=== PATIENT | male | born 1995 | race Caucasian/White ===

== ENCOUNTER 2022-01-08 22:16 | Emergency (ER) | payer SELFPAY ==
[~2022-01-08 22:16] MED LIST: LIDOCAINE PATCH REMOVAL MC SCH
[2022-01-08 22:38] VITALS: BP 136/84; PULSE 77; RESP 20; TEMP 97.9; BMI 31.5
[2022-01-08] MEDS ORDERED: LIDOCAINE 5% TOPICAL PATCH TP ONE (23:30)
[2022-01-08] MEDS ORDERED: KETOROLAC TROMETHAMINE 30 MG/1 ML VIAL IM ONE (23:30)
[2022-01-08] MEDS ORDERED: LIDOCAINE 5% TOPICAL PATCH ONE (23:50)
[2022-01-08] MEDS ORDERED: KETOROLAC TROMETHAMINE 30 MG/1 ML VIAL ONE (23:50)
== END 2022-01-09 00:11 | disposition home or self-care (01) ==
LOC: JER 22:16
PROC: 3E0233Z Introduction of Anti-inflammatory into Muscle, Percutaneous Approach (ICD-10-PCS; principal; 2022-01-08)
DX: R07.82 Intercostal pain (principal)
CPT/HCPCS: 99284-25

== ENCOUNTER 2024-08-29 09:43 | Emergency (ER) | payer OTHER ==
[2024-08-29 10:24] VITALS: BP 122/69; PULSE 65; RESP 20; TEMP 98.3; BMI 31.6
[2024-08-29] MEDS: SULFAMETHOXAZOLE/TRIMETHOPRIM 800MG/160MG D.S. TABLET PO ONE (10:37)
[2024-08-29] MEDS ORDERED: CLINDAMYCIN HCL 150 MG CAPSULE (FP) ONE (10:39)
[2024-08-29] MEDS ORDERED: DIPHTH,PERTUSS(ACELL),TET 0.5 ML DISP.SYRIN IM ONE (10:39)
[2024-08-29] MEDS ORDERED: IBUPROFEN 600 MG TABLET (FP) PO ONE (10:39)
[2024-08-29] MEDS: DIPHTH,PERTUSS(ACELL),TET 0.5 ML DISP.SYRIN IM ONE (10:39)
[2024-08-29] MEDS: CLINDAMYCIN HCL 300 MG CAPSULE PO ONE (10:46)
[2024-08-29] MEDS: IBUPROFEN 600 MG TABLET (FP) PO ONE (10:46)
== END 2024-08-29 11:30 | disposition home or self-care (01) ==
LOC: JERFT 09:43
PROC: 0HQFXZZ Repair Right Hand Skin, External Approach (ICD-10-PCS; principal; 2024-08-29)
PROC: 3E0234Z Introduction of Serum, Toxoid and Vaccine into Muscle, Percutaneous Approach (ICD-10-PCS; 2024-08-29)
DX: S61.012A Laceration without foreign body of left thumb without damage to nail, initial encounter (principal); Z23 Encounter for immunization; W27.8XXA Contact with other nonpowered hand tool, initial encounter
CPT/HCPCS: 12001-25; 73140-TC-RT-FY; 90471; 90715; 99284-25

== ENCOUNTER 2025-03-05 00:52 | Observation (INO) | payer OTHER ==
[2025-03-05] MEDS ORDERED: ONDANSETRON 4 MG/2 ML VIAL ONE ×2 (01:43→04:13)
[2025-03-05] MEDS ORDERED: ACETAMINOPHEN INJECTION 100 ML ONE ×2 (01:43→13:01)
[2025-03-05] MEDS: ACETAMINOPHEN 1000 MG/100 ML BAG IVPB ONE ×2 (02:09→13:08)
[2025-03-05] MEDS: ONDANSETRON 4 MG/2 ML VIAL IVPUSH ONE ×2 (02:10→04:26)
[2025-03-05 02:21] LABS: ABSOLUTE IMMATURE GRANULOCYTES 0.03 x10^3/uL (0.0-0.031); BASOPHILS # 0.05 x10^3/uL (0.01-0.08); EOSINOPHIL % 2.6 % (0.8-7.0); EOSINOPHILS # 0.30 x10^3/uL (0.04-0.54); INR 0.97 (0.83-1.09); MCHC 33.3 g/dl (32.3-36.5); MEAN CELL VOLUME 84.2 fl (79.0-92.2); MEAN PLT VOLUME 11.0 fl (9.4-12.4); MONOCYTE # 0.54 x10^3/uL (0.30-0.82); MONOCYTE % 4.6 % (5.3-12.2); PROTHROMBIN TIME (PATIENT) 10.7 SEC (9.7-13.0); RDW 12.4 % (12.0-15.6)
[2025-03-05 02:24] LABS: ACTIVATED PTT 27.9 SECONDS (25.2-36.5)
[2025-03-05 03:16] LABS: GLUCOSE,RANDOM 119.0 mg/dL (74-106); TOT PROT 7.6 g/dl (6.4-8.2)
[2025-03-05 03:17] LABS: CO2 24.0 mmol/L (21-32)
[2025-03-05 03:19] LABS: ALK PHOS 89.0 U/L (40-150)
[2025-03-05] MEDS ORDERED: PIPERACILLIN/TAZOB 3.375 GM 3.375 GM/50 ML BAG IVPB ONE (03:19)
[2025-03-05] MEDS ORDERED: MORPHINE SULFATE 2 MG/ML SYRINGE ONE (03:19)
[2025-03-05 03:22] LABS: CREATININE 0.74 mg/dL (0.55-1.3); SGOT/AST 30.0 U/L (5-34); SGPT/ALT 43.0 U/L (0-55)
[2025-03-05] MEDS: morphine CARPU-JECT 2 MG/1 ML DISP.SYRIN IVPUSH ONE (03:27)
[2025-03-05] MEDS: PIPERACILLIN/TAZOB 3.375 GM 3.375 GM in DEXTROSE 5%-WATER - 50 ML IVPB ONE (03:27)
[2025-03-05 03:42] LABS: HCV DIAGNOSTIC IN-HOUSE W/RFLX NON-REACTIVE (NONREACTIVE); HIV INTERPRETATION NEGATIVE (NEGATIVE)
[2025-03-05] MEDS: morphine CARPU-JECT 4 MG/1 ML DISP.SYRIN IVPUSH ONE (04:27)
[2025-03-05] MEDS: LACTATED RINGERS SOLUTION 1,000 ML/1,000 ML INFUS.BAG IV SCH (06:00)
[2025-03-05] MEDS ORDERED: ONDANSETRON 4 MG/2 ML VIAL IVPUSH PRN ×3 (06:17→12:52)
[2025-03-05] MEDS ORDERED: MORPHINE SULFATE 2 MG/ML SYRINGE IVPUSH PRN (06:17)
[2025-03-05] MEDS: ACETAMINOPHEN 1000 MG/100 ML BAG IVPB PRN (06:50)
[2025-03-05 08:37] LABS: MCHC 33.5 g/dl (32.3-36.5); MEAN CELL VOLUME 84.2 fl (79.0-92.2); MEAN PLT VOLUME 10.9 fl (9.4-12.4); RDW 12.3 % (12.0-15.6)
[2025-03-05 09:26] LABS: GLUCOSE,RANDOM 141.0 mg/dL (74-106); TOT PROT 7.4 g/dl (6.4-8.2)
[2025-03-05 09:27] LABS: CO2 22.0 mmol/L (21-32)
[2025-03-05 09:29] LABS: ALK PHOS 81.0 U/L (40-150)
[2025-03-05] MEDS ORDERED: BUPIVACAINE HCL/PF 0.25% (2.5MG/ML) 10 ML VIAL ONE (09:30)
[2025-03-05 09:32] LABS: CREATININE 0.7 mg/dL (0.55-1.3); SGOT/AST 122.0 U/L (5-34); SGPT/ALT 114.0 U/L (0-55)
[2025-03-05] MEDS ORDERED: ROCURONIUM BROMIDE 50 MG/5 ML SYRINGE ONE ×2 (09:45→11:31)
[2025-03-05] MEDS ORDERED: MIDAZOLAM HCL 2 MG/2 ML SINGLE DOSE VIAL ONE (09:45)
[2025-03-05] MEDS ORDERED: PROPOFOL 20 ML ONE ×2 (09:45→11:02)
[2025-03-05] MEDS: PIPERACILLIN/TAZOBACTAM 3.375 GM VIAL IVPB ONE (10:00)
[2025-03-05] MEDS ORDERED: PROTAMINE SULFATE 50 MG/5 ML VIAL ONE (11:02)
[2025-03-05] MEDS: BUPIVACAINE HCL/PF 0.25% (2.5MG/ML) 10 ML VIAL IJ ONE ×2 (11:25)
[2025-03-05] MEDS ORDERED: NEOSTIGMINE METHYLSULFATE 0.5 MG/1 ML - 10 ML MDV ONE (11:56)
[2025-03-05] MEDS ORDERED: LACTATED RINGERS SOLUTION 1,000 ML/1,000 ML INFUS.BAG IV SCH (12:52)
[2025-03-05] MEDS ORDERED: KETOROLAC TROMETHAMINE 30 MG/1 ML VIAL ONE (13:01)
[2025-03-05] MEDS: KETOROLAC TROMETHAMINE 30 MG/1 ML VIAL IVPUSH ONE (13:07)
[2025-03-05] MEDS: LACTATED RINGERS SOLUTION 1,000 ML IV SCH (13:07)
[2025-03-05] MEDS: PIPERACILLIN/TAZOB 3.375 GM 3.375 GM in DEXTROSE 5%-WATER - 50 ML IVPB SCH ×3 (16:28→18:09)
[2025-03-05 16:51] VITALS: BMI 34.4
[2025-03-06] MEDS: ACETAMINOPHEN 1000 MG/100 ML BAG IVPB PRN (06:57)
[2025-03-06 08:21] LABS: GLUCOSE,RANDOM 107.0 mg/dL (74-106)
[2025-03-06 08:22] LABS: TOT PROT 6.2 g/dl (6.4-8.2)
[2025-03-06 08:23] LABS: CO2 25.0 mmol/L (21-32)
[2025-03-06 08:25] LABS: ALK PHOS 62.0 U/L (40-150)
[2025-03-06 08:27] LABS: SGOT/AST 47.0 U/L (5-34); SGPT/ALT 99.0 U/L (0-55)
[2025-03-06 08:28] LABS: CREATININE 0.74 mg/dL (0.55-1.3)
[2025-03-06 08:43] LABS: ABSOLUTE IMMATURE GRANULOCYTES 0.04 x10^3/uL (0.0-0.031); BASOPHILS # 0.01 x10^3/uL (0.01-0.08); EOSINOPHIL % 0.2 % (0.8-7.0); EOSINOPHILS # 0.02 x10^3/uL (0.04-0.54); MCHC 32.7 g/dl (32.3-36.5); MEAN CELL VOLUME 86.0 fl (79.0-92.2); MEAN PLT VOLUME 11.4 fl (9.4-12.4); MONOCYTE # 0.85 x10^3/uL (0.30-0.82); MONOCYTE % 7.1 % (5.3-12.2); RDW 12.8 % (12.0-15.6)
[2025-03-06 12:03] LABS: LDL CHOLESTEROL (ONLY SJRH) 158.0 mg/dL (5-100)
[2025-03-06 14:53] VITALS: RESP 17
[2025-03-06 14:54] VITALS: BP 137/88; PULSE 74; TEMP 98.2
== END 2025-03-06 14:20 | disposition home or self-care (01) ==
LOC: JER 00:52 → JERBED 03:15 → J8W 06:41
PROVIDERS: ADMIT Internal Medicine; ATTEND Nurse Practitioner Acute Care
PROC: 3E033NZ Introduction of Analgesics, Hypnotics, Sedatives into Peripheral Vein, Percutaneous Approach (ICD-10-PCS; 2025-03-05)
PROC: 3E0333Z Introduction of Anti-inflammatory into Peripheral Vein, Percutaneous Approach (ICD-10-PCS; 2025-03-05)
PROC: 3E0337Z Introduction of Electrolytic and Water Balance Substance into Peripheral Vein, Percutaneous Approach (ICD-10-PCS; 2025-03-05)
PROC: 3E033GC Introduction of Other Therapeutic Substance into Peripheral Vein, Percutaneous Approach (ICD-10-PCS; 2025-03-05)
PROC: 3E03329 Introduction of Other Anti-infective into Peripheral Vein, Percutaneous Approach (ICD-10-PCS; 2025-03-05)
PROC: 0FT44ZZ Resection of Gallbladder, Percutaneous Endoscopic Approach (ICD-10-PCS; principal; 2025-03-05 13:00)
DX: K80.10 Calculus of gallbladder with chronic cholecystitis without obstruction (principal); R10.11 Right upper quadrant pain
CPT/HCPCS: 36415; 76705-TC; 80053; 80061; 83690; 83735; 84100; 85025; 85610; 85730; 86803; 86850; 86900; 86901; 87389; 93005; 93010; 94010; 94760; 96361; 96365; 96366; 96367; 96375; 96376; 99285-25; G0378